=== PATIENT | male | born 1980 | race Caucasian/White ===

== ENCOUNTER 2022-10-25 12:26 | Outpatient (CLI) | payer OTHER ==
[~2022-10-25 12:26] MED LIST: Iopamidol 370 76% 100 ML VIAL ONE
== END 2022-10-25 12:27 | disposition home or self-care (01) ==
LOC: CT 12:26
PROVIDERS: ATTEND Surgery
DX: K57.32 Diverticulitis of large intestine without perforation or abscess without bleeding (principal); K76.0 Fatty (change of) liver, not elsewhere classified
CPT/HCPCS: 74177; Q9967

== ENCOUNTER 2022-12-20 15:07 | Outpatient (CLI) | payer OTHER ==
[2022-12-20 15:47] LABS: #Basophils 0.1 10x3/uL (0.0-0.2); #Eosinphils 0.2 10x3/uL (0.0-0.5); #Monocytes 0.6 10x3/uL (0.0-1.1); #Neutrophils 4.8 10x3/uL (1.5-8.4); %Basophils 0.7 % (0.0-2.0); %Eosinophils 2.1 % (0.0-6.0); %Lymphocytes 26.1 % (18.0-47.0); %Monocytes 7.4 % (0.0-10.0); %Neutrophils 63.4 % (40.0-75.0); Hematocrit 43.1 % (38.8-50.0); Hemoglobin 14.8 g/dL (13.5-17.5); Mean Corpuscular HGB CONC 34.3 g/dL (32.0-36.0); Mean Corpuscular Hemoglobin 32.2 pg (27.0-33.0); Mean Corpuscular Volume 93.9 fl (81.2-95.1); Mean Platelet Volume 9.3 fl (7.4-10.4); Platelet Count 246 10x3/uL (150-450); RBC Distribution Width 12.7 % (11.5-14.5); Red Blood Cell (RBC) Count 4.59 10x6/uL (4.32-5.72); White Blood Cell (WBC) Count 7.6 10x3/uL (3.5-10.5)
[2022-12-20 19:55] LABS: Hemoglobin A1c 5.2 % (4.0-6.0)
== END 2022-12-20 15:08 | disposition home or self-care (01) ==
LOC: LABBT 15:07
PROVIDERS: ATTEND Surgery
DX: Z01.812 Encounter for preprocedural laboratory examination (principal); K57.92 Diverticulitis of intestine, part unspecified, without perforation or abscess without bleeding
CPT/HCPCS: 83036; 85025

== ENCOUNTER 2022-12-20 15:30 | Inpatient (IN) | payer OTHER ==
[2022-12-20 15:34] VITALS: BMI 25.1
[2022-12-23] MEDS ORDERED: Bupivacaine PF 0.5% 30 ML VIAL ONE (09:18)
[2022-12-23] MEDS ORDERED: fentaNYL 50 mcg/mL 1 mL Vial ONE ×3 (09:18→14:12)
[2022-12-23] MEDS ORDERED: Midazolam HCl 2 mg/2 ml Vial ONE (09:18)
[2022-12-23] MEDS ORDERED: Dexamethasone 4 mg/ml Vial ONE (09:18)
[2022-12-23] MEDS ORDERED: fentaNYL PF 100 MCG/2 ML SYRINGE ONE (09:30)
[2022-12-23] MEDS ORDERED: SUGAMMADEX SODIUM 200 MG/2 ML VIAL ONE (09:30)
[2022-12-23] MEDS ORDERED: Sodium Chloride 0.9% 100 ML ONE (09:50)
[2022-12-23] MEDS ORDERED: cefOXitin 2 GM VIAL ONE ×2 (09:50→12:12)
[2022-12-23] MEDS ORDERED: Sevoflurane 250 ML INH ANEST BOTTLE ONE (09:55)
[2022-12-23] MEDS ORDERED: Dexamethasone 20 MG/5 ML VIAL ONE (09:58)
[2022-12-23] MEDS ORDERED: Lidocaine 1% PF 5 ML VIAL ONE (09:58)
[2022-12-23] MEDS ORDERED: PHENYLEPHRINE-NS 100 MCG/ML 10 ML SYRINGE ONE (09:58)
[2022-12-23] MEDS ORDERED: Ondansetron PF 4 MG/2 ML Vial ONE (09:58)
[2022-12-23] MEDS ORDERED: PROPOFOL 200 MG/20 ML VIAL ONE (09:58)
[2022-12-23] MEDS ORDERED: ePHEDrine Sulfate 50 MG/10 ML VIAL ONE (09:58)
[2022-12-23] MEDS ORDERED: Rocuronium Bromide 10 MG/ML (10ML VIAL) ONE (09:58)
[2022-12-23] MEDS ORDERED: Indocyanine Green 25 MG/10 ML VIAL ONE (10:44)
[2022-12-23] MEDS ORDERED: HYDROmorphone 2 MG/ML VIAL SLOW IVP PRN (12:00)
[2022-12-23] MEDS ORDERED: Ketorolac Tromethamine 30 MG/ML VIAL IVP PRN (12:00)
[2022-12-23] MEDS ORDERED: Promethazine HCl 25 MG/ML VIAL IM/IV PRN (12:00)
[2022-12-23] MEDS ORDERED: Meperidine HCl/PF 25 MG/ML VIAL SLOW IVP PRN (12:00)
[2022-12-23] MEDS ORDERED: Ondansetron HCl/PF 4 MG/2 ML Vial IVP PRN (12:00)
[2022-12-23] MEDS ORDERED: Morphine 2 MG/ML VIAL SLOW IVP PRN (14:08)
[2022-12-23] MEDS ORDERED: Ondansetron PF 4 MG/2 ML Vial IVP PRN (14:10)
[2022-12-23] MEDS ORDERED: Non-Formulary Medication 1 EACH PO PRN (14:30)
[2022-12-23] MEDS ORDERED: Piperacillin/Tazobactam 3.375 GM in Sodium Chloride 0.9% 100 ML IVPB SCH (14:30)
[2022-12-23] MEDS ORDERED: HYDROmorphone 0.5 MG/0.5 ML SYRINGE ONE ×3 (14:33→14:56)
[2022-12-23] MEDS ORDERED: D5 1/2 NS w/20 mEq KCL 1,000 ML ONE (15:04)
[2022-12-23] MEDS: D5 1/2 NS w/20 mEq KCL 1,000 ML IV SCH ×2 (16:05→23:01)
[2022-12-23] MEDS: Piperacillin/Tazobactam 3.375 GM in Sodium Chloride 0.9% 100 ML IVPB SCH (19:48)
[2022-12-23] MEDS: Morphine 4 MG/ML VIAL SLOW IVP PRN (21:16)
[2022-12-24] MEDS: Morphine 4 MG/ML VIAL SLOW IVP PRN ×5 (02:44→21:18)
[2022-12-24] MEDS: Piperacillin/Tazobactam 3.375 GM in Sodium Chloride 0.9% 100 ML IVPB SCH ×2 (04:52→11:22)
[2022-12-24 05:18] LABS: #Neutrophils 10.5 thou/uL (1.40-6.50); %Basophils 0.1 % (0.0-1.0); %Eosinophils 0.1 % (0.0-10.0); %Lymphocytes 9.2 % (21.0-51.0); %Monocytes 7.7 % (0.0-10.0); %Neutrophils 82.3 % (42.0-75.0); Hemoglobin 13.6 g/dL (14.0-18.0); Mean Corpuscular Hemoglobin 32.7 pg (27.0-31.0); Mean Corpuscular Volume 96.2 fl (78.0-98.0); Mean Platelet Volume 9.5 fL (7.4-10.4); Platelet Count 248 10x3/uL (130-400); RBC Distribution Width 12.8 % (11.5-14.5); Red Blood Cell (RBC) Count 4.16 mill/uL (4.70-6.10); White Blood Cell (WBC) Count 12.7 10x3/uL (4.8-10.8)
[2022-12-24 05:47] LABS: Anion Gap 13 mmol/L (10-20); BUN (Urea Nitrogen) 8 mg/dL (8.9-20.6); Calc. Creatinine Clearance 123 mL/min (70-130); Calcium 9.2 mg/dL (7.8-10.44); Carbon Dioxide 24 mmol/L (22-29); Chloride 102 mmol/L (98-107); Estimated GFR 110; Glucose 140 mg/dL (70-105); Potassium 4.3 mmol/L (3.5-5.1); Sodium 135 mmol/L (136-145)
[2022-12-24] MEDS: D5 1/2 NS w/20 mEq KCL 1,000 ML IV SCH ×2 (06:55→16:44)
[2022-12-24] MEDS: Pantoprazole 40 MG VIAL IVP SCH (08:40)
[2022-12-24] MEDS ORDERED: Promethazine HCl 25 MG/ML VIAL IM PRN (11:04)
[2022-12-24] MEDS ORDERED: Ipratropium/Albuterol 3 ML NEB NEB PRN (11:04)
[2022-12-24] MEDS ORDERED: Ondansetron PF 4 MG/2 ML Vial IVP PRN (11:04)
[2022-12-24] MEDS ORDERED: hydrALAZINE 20 MG/ML VIAL SLOW IVP PRN (11:04)
[2022-12-24] MEDS: Famotidine 20 MG TAB PO SCH (21:14)
[2022-12-24] MEDS: Famotidine/PF 20 mg/2ml Vial SLOW IVP SCH (21:14)
[2022-12-25] MEDS: D5 1/2 NS w/20 mEq KCL 1,000 ML IV SCH ×3 (01:50→19:20)
[2022-12-25] MEDS: Morphine 4 MG/ML VIAL SLOW IVP PRN ×2 (01:51→05:42)
[2022-12-25 06:06] LABS: #Eosinphils 0.1 thou/uL (0.0-0.7); #Monocytes 0.7 thou/uL (0.11-0.59); #Neutrophils 6.8 thou/uL (1.40-6.50); %Basophils 0.3 % (0.0-1.0); %Eosinophils 0.7 % (0.0-10.0); %Lymphocytes 19.3 % (21.0-51.0); %Monocytes 7.3 % (0.0-10.0); %Neutrophils 72.1 % (42.0-75.0); Hematocrit 36.5 % (42.0-52.0); Hemoglobin 12.1 g/dL (14.0-18.0); Mean Corpuscular HGB CONC 33.2 g/dL (32.0-36.0); Mean Corpuscular Hemoglobin 32.4 pg (27.0-31.0); Mean Corpuscular Volume 97.9 fl (78.0-98.0); Mean Platelet Volume 9.6 fL (7.4-10.4); Platelet Count 195 10x3/uL (130-400); RBC Distribution Width 13.2 % (11.5-14.5); Red Blood Cell (RBC) Count 3.73 mill/uL (4.70-6.10); White Blood Cell (WBC) Count 9.4 10x3/uL (4.8-10.8)
[2022-12-25 07:04] LABS: Anion Gap 11 mmol/L (10-20); BUN (Urea Nitrogen) 5 mg/dL (8.9-20.6); Calc. Creatinine Clearance 127 mL/min (70-130); Calcium 8.9 mg/dL (7.8-10.44); Carbon Dioxide 26 mmol/L (22-29); Chloride 105 mmol/L (98-107); Estimated GFR 111; Glucose 111 mg/dL (70-105); Potassium 4.1 mmol/L (3.5-5.1); Sodium 138 mmol/L (136-145)
[2022-12-25] MEDS: Famotidine/PF 20 mg/2ml Vial SLOW IVP SCH ×2 (10:19→20:24)
[2022-12-25] MEDS: Famotidine 20 MG TAB PO SCH ×2 (10:19→20:24)
[2022-12-25] MEDS: Pantoprazole 40 MG VIAL IVP SCH (10:19)
[2022-12-25] MEDS ORDERED: HYDROcodone/Acetaminophen 7.5/325 mg Tablet PO PRN ×2 (20:38→20:39)
[2022-12-25] MEDS ORDERED: Temazepam 15 MG CAP PO PRN (20:39)
[2022-12-26] MEDS: D5 1/2 NS w/20 mEq KCL 1,000 ML IV SCH ×2 (00:17→04:48)
[2022-12-26] MEDS: Famotidine 20 MG TAB PO SCH (08:56)
[2022-12-26] MEDS: Pantoprazole 40 MG VIAL IVP SCH (08:58)
[2022-12-26] MEDS: Famotidine/PF 20 mg/2ml Vial SLOW IVP SCH (12:40)
[2022-12-26 15:41] VITALS: BP 125/84; TEMP 98.1
== END 2022-12-26 16:54 | disposition home or self-care (01) | DRG 331 ==
LOC: SURG A 12-23 07:11
PROVIDERS: ADMIT Surgery; ATTEND Surgery
PROC: 0DTN4ZZ Resection of Sigmoid Colon, Percutaneous Endoscopic Approach (ICD-10-PCS; principal; 2022-12-23)
PROC: 0DNL0ZZ Release Transverse Colon, Open Approach (ICD-10-PCS; 2022-12-23)
PROC: 8E0W4CZ Robotic Assisted Procedure of Trunk Region, Percutaneous Endoscopic Approach (ICD-10-PCS; 2022-12-23)
PROC: 3E033XZ Introduction of Vasopressor into Peripheral Vein, Percutaneous Approach (ICD-10-PCS; 2022-12-23)
DX: K57.20 Diverticulitis of large intestine with perforation and abscess without bleeding (principal); Z79.899 Other long term (current) drug therapy; Z87.891 Personal history of nicotine dependence; Z83.3 Family history of diabetes mellitus; Z80.9 Family history of malignant neoplasm, unspecified
CPT/HCPCS: 36415; 36416; 80048; 85025; 88307; 93005; 93010; C1713; C9113; J0694; J1100; J1170; J2250; J2270; J2272; J2405; J2543; J2704; J3010; J3480; J3490; S0020; S0028